=== PATIENT | male | born 1935 | race Asian ===

== ENCOUNTER 2018-12-12 23:38 | Inpatient (IN) | payer OTHER, MEDICAID ==
[~2018-12-12] VITALS: Ht 172.7 cm; Wt 82.6 kg
[2018-12-12 23:39] VITALS: BP_SYST 168
[2018-12-13 01:54] LABS: BILIRUBIN,URINE NEGATIVE (NEGATIVE); BLOOD, URINE NEGATIVE (NEGATIVE); CLARITY/URINE CLEAR (CLEAR); COLOR,URINE YELLOW (YELLOW); GLUCOSE,URINE NEGATIVE (NEGATIVE); KETONES,URINE NEGATIVE (NEGATIVE); LEUKOCYTE ESTERASE ,URINE NEGATIVE (NEGATIVE); NITRITE, URINE NEGATIVE (NEGATIVE); PROTEIN URINE NEGATIVE (NEGATIVE); UROBILINOGEN,URINE 0.2 (0.2-1.0)
[2018-12-13] MEDS ORDERED: NACL 0.9% 1,000 ML IV ONE (02:00)
[2018-12-13 02:11] LABS: BASOPHILS % (AUTO) 0.4 % (0.0-2.0); EOSINOPHILS # (AUTO) 0.1 K/uL (0.0-0.4); EOSINOPHILS % (AUTO) 1.9 % (0.0-4.0); HEMATOCRIT 39.5 % (36-54); HEMOGLOBIN 12.9 g/dL (14.0-18.0); LYMPHOCYTES % (AUTO) 20.6 % (20.5-51.5); MEAN CORPUSCULAR HEMOGLOBIN 30 pg (27-31); MEAN CORPUSCULAR HGB CONC 33 % (32-36); MEAN CORPUSCULAR VOLUME 93 fL (79.0-98.0); MONOCYTES # (AUTO) 0.5 K/uL (0.0-1.0); MONOCYTES % (AUTO) 10.3 % (1.7-9.3); NEUTROPHILS # (AUTO) 3.4 K/uL (1.8-7.7); NEUTROPHILS % (AUTO) 66.8 % (40.0-70.0); PLATELET COUNT (AUTO) 239 K/uL (130-430); RED BLOOD CELL COUNT(AUTO) 4.24 MIL/uL (4.2-6.2); RED CELL DISTRIBUTION WIDTH 12.4 % (9.0-15.0)
[2018-12-13 02:18] LABS: ANION GAP 8 (5-15); CALCIUM 8.9 mg/dL (8.4-11.0); CHLORIDE 97 mmol/L (98-107); CREATININE 0.73 mg/dL (0.55-1.30); GLUCOSE 134 mg/dL (70-99); POTASSIUM 3.9 mmol/L (3.5-5.1); SODIUM SERUM 131 mmol/L (136-145); UREA NITROGEN, BLOOD 10 mg/dL (8-21)
[2018-12-13 02:24] LABS: ALANINE AMINOTRANSFERASE 18 U/L (12-78); ALBUMIN 3.1 g/dL (3.4-4.8); ASPARTATE AMINOTRANSFERASE 22 U/L (10-37); TOTAL BILIRUBIN 0.6 mg/dL (0.0-1.0)
[2018-12-13] MEDS ORDERED: ONDANSETRON HCL 4 MG/2 ML VIAL IVP ONE (02:30)
[2018-12-13] MEDS ORDERED: DILACOR PO (03:21)
[2018-12-13 05:02] VITALS: BP_SYST 148
[2018-12-13 08:30] VITALS: BP_SYST 131
[2018-12-13] MEDS ORDERED: DILTIAZEM HCL 60 MG TABLET PO SCH (09:00)
[2018-12-13 11:26] VITALS: BP_SYST 130
[2018-12-13] MEDS ORDERED: ACETAMINOPHEN 650 MG SUPP.RECT RC PRN (12:45)
[2018-12-13] MEDS ORDERED: MECLIZINE HCL 25 MG TABLET (ANITVERT) PO ONE (12:45)
[2018-12-13] MEDS: KCL 20 mEq in D5/0.45NS 1000mL 1,000 ML IV SCH (15:07)
[2018-12-13 15:34] VITALS: BP_SYST 120
[2018-12-13 19:35] VITALS: BP_SYST 154
[2018-12-13 23:21] VITALS: BP_SYST 130
[2018-12-14] MEDS: KCL 20 mEq in D5/0.45NS 1000mL 1,000 ML IV SCH ×2 (03:42→16:11)
[2018-12-14 07:28] LABS: CHOLESTEROL 144 mg/dL (<200); HDL CHOLESTEROL 36 mg/dL (>45); LDL CHOLESTEROL 100 mg/dL (<100); TRIGLYCERIDES 48 mg/dL (30-150)
[2018-12-14 08:50] VITALS: BP_SYST 152
[2018-12-14] MEDS: ASPIRIN 81 MG TABLET(ECOTRIN) PO SCH (08:56)
[2018-12-14] MEDS: DILTIAZEM HCL 120 MG CAP.SR.24H PO SCH (08:58)
[2018-12-14] MEDS: ENOXAPARIN SODIUM 40 MG/0.4 ML SYRINGE SUBCUT SCH (09:03)
[2018-12-14 12:30] VITALS: BP_SYST 146
[2018-12-14 16:22] VITALS: BP_SYST 142
[2018-12-14 20:13] VITALS: BP_SYST 149
[2018-12-15 00:56] VITALS: BP_SYST 145
[2018-12-15] MEDS: KCL 20 mEq in D5/0.45NS 1000mL 1,000 ML IV SCH (05:06)
[2018-12-15 08:00] VITALS: BP_SYST 127
[2018-12-15] MEDS: DILTIAZEM HCL 120 MG CAP.SR.24H PO SCH (09:35)
[2018-12-15] MEDS: ASPIRIN 81 MG TABLET(ECOTRIN) PO SCH (09:35)
[2018-12-15] MEDS: ENOXAPARIN SODIUM 40 MG/0.4 ML SYRINGE SUBCUT SCH (09:40)
[2018-12-15 12:07] VITALS: BP_SYST 131
[2018-12-15 13:24] VITALS: BP_SYST 131
[2018-12-15] MEDS ORDERED: ASPI-1153 PO (13:37)
== END 2018-12-15 14:18 | disposition home or self-care (01) | DRG 69 ==
LOC: SED 23:38 → STU 12-13 04:29
PROVIDERS: ADMIT Family Medicine; ATTEND Family Medicine
DX: G45.9 Transient cerebral ischemic attack, unspecified (principal); E87.1 Hypo-osmolality and hyponatremia; I10 Essential (primary) hypertension; M19.90 Unspecified osteoarthritis, unspecified site; I48.91 Unspecified atrial fibrillation; H54.7 Unspecified visual loss; R26.81 Unsteadiness on feet; Z90.49 Acquired absence of other specified parts of digestive tract
CPT/HCPCS: 36415; 70450-TC; 71045; 80053; 80061; 81003; 85025; 90656; 93005; 93880; 96361; 96374; 99285; G0378; J1650; J2405; J7030; J8597